=== PATIENT | female | born 1975 | race Two or more races ===

== ENCOUNTER 2023-07-31 11:03 | Emergency (ER) | payer SELFPAY ==
[~2023-07-31] VITALS: Ht 165.1 cm; Wt 65.0 kg
[2023-07-31 11:10] VITALS: O2SAT 99
[2023-07-31] MEDS ORDERED: DEXAMETHASONE 1MG TABLET PO ONE (12:00)
[2023-07-31] MEDS: DEXAMETHASONE 4MG TABLET PO NR (13:03)
[2023-07-31] MEDS: DEXAMETHASONE 6MG TABLET PO NR (13:04)
[2023-07-31] MEDS ORDERED: IBUP-2028 MT (13:18)
[2023-07-31] MEDS ORDERED: PECT2.8L4 MM (13:18)
[2023-07-31 13:56] VITALS: BP 110/60; PULSE 69; RESP 18; TEMP 98.2
== END 2023-07-31 14:42 | disposition home or self-care (01) ==
LOC: ER 11:03
DX: B34.9 Viral infection, unspecified (principal); J02.8 Acute pharyngitis due to other specified organisms; Z20.822 Contact with and (suspected) exposure to COVID-19
CPT/HCPCS: 99283; 87426; 87430; 87070; 87804 ×2; J8540